=== PATIENT | female | born 1930 | race Caucasian/White ===

== ENCOUNTER 2016-07-18 00:42 | Emergency (ER) | payer MEDICARE ==
[~2016-07-18] VITALS: Ht 170.1 cm; Wt 72.6 kg
[~2016-07-18 00:42] MED LIST: MOTRIN800 MG PO
[2016-07-18] MEDS ORDERED: DONEPEZIL HYDRO23 M1 PO (01:28)
[2016-07-18] MEDS ORDERED: NAMENDA-28 PO (01:28)
[2016-07-18] MEDS ORDERED: METOPROLOL SUCC50 M1 PO (01:28)
== END 2016-07-18 03:11 | disposition short-term general hospital (02) ==
LOC: ED 00:42
DX: S02.2XXA Fracture of nasal bones, initial encounter for closed fracture (principal); S02.40CA Maxillary fracture, right side, initial encounter for closed fracture; S42.301A Unspecified fracture of shaft of humerus, right arm, initial encounter for closed fracture; S09.90XA Unspecified injury of head, initial encounter; Z88.0 Allergy status to penicillin; W18.09XA Striking against other object with subsequent fall, initial encounter; Y93.89 Activity, other specified; Y92.9 Unspecified place or not applicable; Y99.9 Unspecified external cause status

== ENCOUNTER 2016-09-10 08:22 | Inpatient (IN) | payer MEDICARE ==
[~2016-09-10] VITALS: Ht 154.9 cm; Wt 49.0 kg
[2016-09-10 08:22] VITALS: BP 156/60
[~2016-09-10 08:22] MED LIST changes: +DONEPEZIL HYDRO23 M1 PO; +METOPROLOL SUCC50 M1 PO; +NAMENDA-28 PO
[2016-09-10] MEDS ORDERED: ARICEPT10 M1 PO (08:33)
[2016-09-10] MEDS ORDERED: TYLENOL325 M2 PO (08:33)
[2016-09-10] MEDS ORDERED: ASPIRIN81 M1 PO (08:34)
[2016-09-10] MEDS ORDERED: CIPRO500 MG PO (08:34)
[2016-09-10] MEDS ORDERED: DULCOLAX10 M1 RC (08:35)
[2016-09-10] MEDS ORDERED: EFFEXOR XR37.5 M1 PO (08:35)
[2016-09-10] MEDS ORDERED: METOPROLOL TAR100 M1 PO (08:36)
[2016-09-10] MEDS ORDERED: MILK OF MA400 MG/52 PO (08:36)
[2016-09-10] MEDS ORDERED: NAMENDA10 MG PO (08:37)
[2016-09-10] MEDS ORDERED: READY TO USE E133 ML RC (08:37)
[2016-09-10] MEDS ORDERED: ULTRAM50 MG PO (08:38)
[2016-09-10] MEDS ORDERED: TRAMADOL HCL E100 MG PO (08:38)
[2016-09-10] MEDS ORDERED: TUSSIN100 MG/52 PO (08:38)
[2016-09-10 08:49] LABS: BILIRUBIN NEGATIVE (NEGATIVE); BLOOD 2+ (NEGATIVE); CLARITY SL CLOUDY (CLEAR); COLOR YELLOW (YELLOW); GLUCOSE NEGATIVE (NEGATIVE); KETONE NEGATIVE (NEGATIVE); LEUKO ESTERASE 3+ (NEGATIVE); NITRITE POSITIVE (NEGATIVE); PH 8.5 (5.0-9.0); PROTEIN 2+ (NEGATIVE); UROBILINOGEN 0.2 E.U./dl (0.2-1.0)
[2016-09-10 08:55] LABS: HEMOGLOBIN 9.8 g/dl (12.0-16.0); MEAN CELL VOLUME 102.8 fl (81.0-99.0); MEAN CORPUSCULAR HGB 30.5 pg (27.0-31.0); MEAN CORPUSCULAR HGB CONC 29.7 g/dl (33.0-37.0); NUCLEATED RED BLOOD CELL 0.1 % (0.0-0.0); PLATELET COUNT AUTOMATED 427 10*3/uL (130-400); RED BLOOD COUNT 3.21 10*6/uL (4.10-5.10); WHITE BLOOD COUNT 21.8 10*3/uL (4.8-10.8)
[2016-09-10 08:56] LABS: BACTERIA 3+; URINE REFLEX COMMENT YES (NO); WBC 31-40 wbc/hpf (0-5)
[2016-09-10 09:00] VITALS: BP 171/53
[2016-09-10 09:04] LABS: INTERNATIONAL NORM RATIO 1.1 (2.0-3.5); PROTHROMBIN TIME 11.6 SECONDS (9.0-12.4)
[2016-09-10 09:12] LABS: BUN 96 mg/dl (7-24); CARBON DIOXIDE 24 mmol/L (21-32); CHLORIDE 122 mmol/L (98-107); EST GLOM FILT AFRICAN AMERICAN 13 ml/min; GLUCOSE 108 mg/dL (65-99); POTASSIUM 4.8 mmol/L (3.5-5.1); SODIUM 154 mmol/L (136-145)
[2016-09-10 09:13] LABS: LYMPHOCYTE # 3.1 10*3/uL (1.3-4.4); MONOCYTE # 1.3 10*3/uL (0.1-1.0); NEUTROPHIL # 17.4 10*3/uL (2.3-7.9); NEUTROPHILS 80 % (47-73); TOTAL CELLS COUNTED 100 #CELLS; TROPONIN I < 0.015 ng/ml (<0.045)
[2016-09-10 09:14] LABS: PLATELET SUFFICIENCY NORMAL (NORMAL); POLYCHROMASIA SLIGHT; TOXIC GRANULATION SLIGHT
[2016-09-10 09:59] VITALS: BP 76/56
[2016-09-10 10:04] VITALS: BP 148/62
[2016-09-10 10:30] VITALS: BP 154/56
[2016-09-10 10:52] LABS: LA>2 REFLEX 2 HR DRAW NOW
[2016-09-10 16:00] VITALS: BP 163/48
== END 2016-09-10 17:45 | disposition short-term general hospital (02) | DRG 682 ==
LOC: ED 08:22 → EDHOLD 09:39 → 4E 09:59
PROVIDERS: Emergency Medicine
DX: N17.0 Acute kidney failure with tubular necrosis (principal); G93.41 Metabolic encephalopathy; E87.0 Hyperosmolality and hypernatremia; F03.91 Unspecified dementia, unspecified severity, with behavioral disturbance; N39.0 Urinary tract infection, site not specified; G91.2 (Idiopathic) normal pressure hydrocephalus; E83.41 Hypermagnesemia; D47.3 Essential (hemorrhagic) thrombocythemia; I10 Essential (primary) hypertension; F32.9 Major depressive disorder, single episode, unspecified; G89.29 Other chronic pain; D64.9 Anemia, unspecified; Z79.1 Long term (current) use of non-steroidal anti-inflammatories (NSAID); Z88.0 Allergy status to penicillin; Z79.82 Long term (current) use of aspirin; Z79.899 Other long term (current) drug therapy